=== PATIENT | female | born 1945 ===

== ENCOUNTER 2021-10-26 11:19 | Outpatient (CLI) | payer OTHER | END 2021-10-26 12:24 | disposition home or self-care (01) | LOC: MAMO-SONO 11:19 | DX: M15.0 Primary generalized (osteo)arthritis (principal); Z12.11 Encounter for screening for malignant neoplasm of colon; I11.9 Hypertensive heart disease without heart failure ==

== ENCOUNTER 2021-10-28 09:18 | Outpatient (CLI) | payer OTHER | END 2021-10-28 09:33 | disposition home or self-care (01) | LOC: MRI 09:18 | PROVIDERS: ATTEND Neuromusculoskeletal Medicine & OMM | DX: G40.909 Epilepsy, unspecified, not intractable, without status epilepticus (principal) | CPT/HCPCS: 70553; Q9965 ==